=== PATIENT | female | born 1995 | race Caucasian/White ===

== ENCOUNTER 2020-12-28 14:52 | Observation (INO) | payer OTHER ==
[2020-12-28 15:58] VITALS: BP 111/73; PULSE 99
== END 2020-12-28 16:20 | disposition home or self-care (01) ==
LOC: WHC 14:52 → OB 15:25
PROVIDERS: ADMIT Obstetrics & Gynecology; ATTEND Obstetrics & Gynecology
DX: Z34.83 Encounter for supervision of other normal pregnancy, third trimester (principal); Z3A.35 35 weeks gestation of pregnancy
CPT/HCPCS: 59025; 59426; G0378; 81002

== ENCOUNTER 2021-01-04 13:32 | Observation (INO) | payer OTHER ==
[2021-01-04 14:41] VITALS: BP 102/57; PULSE 115
== END 2021-01-04 14:30 | disposition home or self-care (01) ==
LOC: OB 13:32
PROVIDERS: ADMIT Obstetrics & Gynecology; ATTEND Obstetrics & Gynecology
DX: O99.113 Other diseases of the blood and blood-forming organs and certain disorders involving the immune mechanism complicating pregnancy, third trimester (principal); D68.51 Activated protein C resistance
CPT/HCPCS: 59025; G0378

== ENCOUNTER 2021-01-11 11:19 | Observation (INO) | payer OTHER ==
[2021-01-11 12:05] VITALS: BP 121/87; PULSE 91
== END 2021-01-11 12:20 | disposition home or self-care (01) ==
LOC: OB 11:19
PROVIDERS: ADMIT Obstetrics & Gynecology; ATTEND Obstetrics & Gynecology
DX: O99.113 Other diseases of the blood and blood-forming organs and certain disorders involving the immune mechanism complicating pregnancy, third trimester (principal); D68.51 Activated protein C resistance; Z3A.38 38 weeks gestation of pregnancy; O36.5930 Maternal care for other known or suspected poor fetal growth, third trimester, not applicable or unspecified
CPT/HCPCS: 59025; G0378

== ENCOUNTER 2021-01-14 13:23 | Observation (INO) | payer OTHER ==
[2021-01-14 14:58] VITALS: BP 113/76; PULSE 73
== END 2021-01-14 14:45 | disposition home or self-care (01) ==
LOC: OB 13:23
PROVIDERS: ADMIT Obstetrics & Gynecology; ATTEND Obstetrics & Gynecology
DX: Z34.83 Encounter for supervision of other normal pregnancy, third trimester (principal); Z3A.38 38 weeks gestation of pregnancy
CPT/HCPCS: 59025; G0378

== ENCOUNTER 2021-01-18 09:53 | Observation (INO) | payer OTHER ==
[2021-01-18 10:54] VITALS: BP 142/86; PULSE 72
== END 2021-01-18 11:20 | disposition home or self-care (01) ==
LOC: MED SURG 09:53
PROVIDERS: ADMIT Obstetrics & Gynecology; ATTEND Obstetrics & Gynecology
DX: Z34.83 Encounter for supervision of other normal pregnancy, third trimester (principal); Z3A.38 38 weeks gestation of pregnancy
CPT/HCPCS: 59025; G0378

== ENCOUNTER 2021-01-20 06:12 | Inpatient (IN) | payer OTHER ==
[~2021-01-20 06:12] MED LIST: BRETHINE 1 MG/ML SQ PRN; PITOCIN 30 UNITS/ LR 500 ML 30 UNITS/500 ML IV.SOLN. IV SCH; XYLOCAINE 1% HCL 20 ML MDV IJ PRN; Zofran 4 MG/2 ML VIAL IV PRN
[2021-01-20 06:45] LABS: BASOPHIL % 0.2 % (0.0-0.4); Basophil (Absolute #) 0.02 (0-0.4); Eosinophil % 0.7 % (0.00-5.0); Eosinophil (Absolute #) 0.06 (0-0.5); Hematocrit 37.1 % (35-47); Lymphocyte (Absolute #) 1.61 (1.0-4.6); Lymphocytes % 17.8 % (24.0-44.0); Mean Cell Volume 92.8 fl (78-100); Mean Corpuscular Hgb Concent. 32.3 g/dl (32-36); Mean Platelet Volume 10.4 fl (7.5-11.0); Monocyte (Absolute #) 0.78 (0.0-1.3); Monocytes % 8.6 % (0.0-12.0); Neutrophil % 72.7 % (36.0-66.0); Platelet Count 277 K/mm3 (150-450); Red Cell Distribution Width 12.5 % (11.5-14.0); White Blood Count 9.1 K/mm3 (4.0-10.5)
[2021-01-20 06:50] LABS: Appearance SLIGHTLY CLOUDY (CLEAR); Bacteria RARE /HPF (NEGATIVE); Bilirubin NEGATIVE (NEGATIVE); Blood NEGATIVE Ery/ul (0-5); Epithelial Cells RARE /HPF (FEW); Glucose 50 mg/dL (NEGATIVE); Ketones NEGATIVE (NEGATIVE); Leukocyte Esterase NEGATIVE (NEGATIVE); Mucus SLIGHT /HPF (NEGATIVE); Nitrite NEGATIVE (NEGATIVE); Protein,Urine Dip NEGATIVE (Negative); Specific Gravity 1.017 (1.005-1.025); Urobilinogen NEGATIVE mg/dL (0-1); WBC 0-2 /HPF (0-5)
[2021-01-20 07:26] LABS: Amphetamine,Urine NEGATIVE (NEGATIVE); Barbiturate,Urine NEGATIVE (NEGATIVE); Benzodiazepine,Urine NEGATIVE (NEGATIVE); Cocaine,Urine NEGATIVE (NEGATIVE); Methadone,Urine NEGATIVE (NEGATIVE); Opiate,Urine NEGATIVE (NEGATIVE); PCP,Urine NEGATIVE (NEGATIVE); THC,Urine NEGATIVE (NEGATIVE)
[2021-01-20] MEDS ORDERED: PITOCIN 30 UNITS/ LR 500 ML 30 UNITS/500 ML IV.SOLN. IV SCH (08:00)
[2021-01-20 08:33] LABS: INR 0.97 (0.8-3.0)
[2021-01-20 10:33] LABS: RH TYPING POSITIVE
[2021-01-20 10:34] LABS: Antibody Screen NEGATIVE (NEGATIVE)
[2021-01-20 10:41] LABS: ABO TYPING B
[2021-01-20] MEDS ORDERED: Lactated Ringers 1,000 ML IV ONE (15:25)
[2021-01-20] MEDS ORDERED: OB EPIDURAL NAROPIN/SUFENTANIL IN NACL EPIDURAL PRN (15:25)
[2021-01-20] MEDS ORDERED: Ephedrine Sulfate 50 MG/ML IV PRN (15:25)
[2021-01-20] MEDS: Lactated Ringers 1,000 ML IV SCH ×3 (15:28→20:27)
[2021-01-20] MEDS ORDERED: CORTISONE 1% CREAM TP PRN (22:33)
[2021-01-20] MEDS ORDERED: Mylicon 80MG PO PRN (22:33)
[2021-01-20] MEDS ORDERED: LANSINOH 40 GM TOP PRN (22:33)
[2021-01-20] MEDS ORDERED: Anucort-HC SUPPOSITORY PR PRN (22:33)
[2021-01-20] MEDS ORDERED: Dulcolax 10 MG SUPP PR PRN (22:33)
[2021-01-20] MEDS: MOTRIN 400 MG PO PRN (22:58)
[2021-01-20] MEDS: TUCKS TP PRN (23:00)
[2021-01-20] MEDS: Dermoplast Spray TP PRN (23:00)
[2021-01-20] MEDS: KEFZOL 1 GM/50 ML PREMIX** 1 GM/50 ML IVPB IV SCH (23:02)
[2021-01-21 05:39] LABS: Absolute Neutrophil Ct (ANC) 10.08 (1.4-6.9); BASOPHIL % 0.2 % (0.0-0.4); Basophil (Absolute #) 0.03 (0-0.4); Eosinophil % 0.4 % (0.00-5.0); Eosinophil (Absolute #) 0.05 (0-0.5); Hematocrit 30.1 % (35-47); Hemoglobin 9.7 gm/dl (12.0-16.0); Lymphocyte (Absolute #) 1.68 (1.0-4.6); Lymphocytes % 12.5 % (24.0-44.0); Mean Cell Volume 93.8 fl (78-100); Mean Corpuscular Hemoglobin 30.2 pg (26-32); Mean Corpuscular Hgb Concent. 32.2 g/dl (32-36); Mean Platelet Volume 10.3 fl (7.5-11.0); Monocytes % 11.9 % (0.0-12.0); Platelet Count 204 K/mm3 (150-450); Red Blood Count 3.21 M/mm3 (4.1-5.4); Red Cell Distribution Width 12.4 % (11.5-14.0); White Blood Count 13.4 K/mm3 (4.0-10.5)
[2021-01-21] MEDS: MOTRIN 400 MG PO PRN ×3 (05:53→19:53)
[2021-01-21] MEDS: KEFZOL 1 GM/50 ML PREMIX** 1 GM/50 ML IVPB IV SCH ×2 (05:54→19:35)
[2021-01-21] MEDS: TYLENOL EXTRA STRENGTH 500 MG PO PRN ×3 (09:27→21:20)
[2021-01-21] MEDS: Colace 100 MG PO SCH ×2 (09:27→21:13)
[2021-01-21] MEDS: FERREX 150 PO SCH (09:27)
[2021-01-21 12:37] LABS: Slide Review 1 YES
[2021-01-21] MEDS: ENOXAPARIN SODIUM SQ SCH (15:30)
[2021-01-21 15:51] VITALS: O2SAT 98
[2021-01-22] MEDS: TYLENOL EXTRA STRENGTH 500 MG PO PRN ×2 (02:02→08:00)
[2021-01-22] MEDS: MOTRIN 400 MG PO PRN ×2 (02:03→07:59)
--- NOTE | 2021-01-22 09:46 | PCM.NOTE ---
Date and Time: 01/22/2145 Subjective Assessment: ppd 2 pt resting in bed and doing well vss afebrile abd; soft uterus; firm lochia; mild a/p sp ppd 2 dc home today fu office 3 wks OBJECTIVE DATA Vital Signs: Vital Signs - 24 hr Temp Pulse Resp BP Pulse Ox 01/22/21 08:00 98.7 F 71 20 121/79 01/22/21 02:00 98.3 F 90 17 97/63 98 01/21/21 20:00 98 F 85 17 103/56 98 01/21/21 15:15 98.0 F 73 18 108/55 98 Pain Assessment - Last Documented Pain Intensity [Anterior/ 3 Posterior] Pain Intensity 3 Pain Scale Used 0-10 Pain Scale,FLACC Intake and Output: Intake & Output 01/19/21 01/20/21 01/21/21 01/22/21 11:59 11:59 11:59 11:59 Intake Total 4018 2440 Output Total 1100 Balance 2918 2440 Weight 79.379 kg Lab Results: Lab Results-Last 24 Hours 01/20/21 01/21/21 Range/Units 06:30 05:06 Hep Bs Antigen Negative (Negative) Slides for Path Review YES
--- NOTE | 2021-01-22 09:49 | PCM.DS ---
Discharge Summary Date of Admission: 01/20/21 17:45 Admitting Physician: OLI GIBSON DO Primary Care Provider: ABIDA LARSEN Allergies Allergies No Known Drug Allergies Allergy (Unverified 12/28/20 16:07) Hospital Summary - Hospital Course Hospital Course: pt admitted on january 20 for induction secondary to sga and delivered live baby boy via wthout complication. during pospartum period pt did well had received her lovenox 40mg sq secondary to factor 5 leiden. pt at this time stable for discharge. pt during delivery had 2nd degree laceration repaired with 2-0 chromic suture. pt at this time stable for dc and advised to fu in office in 3 wks for care. all questions answered to her satisfaction. - Vitals & Intake/Output Vital Signs: Vital Signs Temperature 98.7 F 01/22/21 08:00 Pulse Rate 71 01/22/21 08:00 Respiratory Rate 20 01/22/21 08:00 Blood Pressure 121/79 01/22/21 08:00 O2 Sat by Pulse Oximetry 98 01/22/21 02:00 Intake & Output: Intake & Output 01/19/21 01/20/21 01/21/21 01/22/21 11:59 11:59 11:59 11:59 Intake Total 4018 2440 Output Total 1100 Balance 2918 2440 Weight 79.379 kg - Lab Result Diagrams: 01/21/21 05:06 Lab Results-Last 24 Hrs: Lab Results-Last 24 Hours 01/20/21 01/21/21 Range/Units 06:30 05:06 Hep Bs Antigen Negative (Negative) Slides for Path Review YES Final Diagnosis/Problem List - Final Discharge Diagnosis/Problem (1) Vaginal delivery Current Visit: Yes Status: Acute Code(s): O80 - ENCOUNTER FOR FULL-TERM UNCOMPLICATED DELIVERY - Discharge Disposition: Home, Self-Care Condition: Stable Prescriptions: No Action Fluoxetine HCl 20 mg [Prozac 20 MG] 20 mg PO DAILY Aspirin 81 mg PO DAILY Vits W-Ca,Fe,FA(<1Mg) [] 1 tab PO DAILY Heparin Sodium,Porcine/Pf [Heparin 10 Unit/10 ml (1/ml)] 10,000 units SQ BID Ondansetron ODT 4 MG [Zofran Odt 4 mg] 4 mg PO Q6H PRN PRN PRN Reason: Nausea Instructions: Depression, Vaginal Delivery, Breast Care for the Nonbreastfeeding Woman, Breast Care for the Woman, , Labor Induction, Misoprostol, How to Do a Sitz Bath, What to Watch for After You Have a Baby Follow up with: ABIDA LARSEN [Primary Care Provider] -
--- NOTE | 2021-01-22 09:50 | PCM.DS ---
Discharge Summary Date of Admission: 01/20/21 17:45 Admitting Physician: OLI GIBSON DO Primary Care Provider: ABIDA LARSEN Allergies Allergies No Known Drug Allergies Allergy (Unverified 12/28/20 16:07) Hospital Summary - Vitals & Intake/Output Vital Signs: Vital Signs Temperature 98.7 F 01/22/21 08:00 Pulse Rate 71 01/22/21 08:00 Respiratory Rate 20 01/22/21 08:00 Blood Pressure 121/79 01/22/21 08:00 O2 Sat by Pulse Oximetry 98 01/22/21 02:00 Intake & Output: Intake & Output 01/19/21 01/20/21 01/21/21 01/22/21 11:59 11:59 11:59 11:59 Intake Total 4018 2440 Output Total 1100 Balance 2918 2440 Weight 79.379 kg - Lab Result Diagrams: 01/21/21 05:06 Lab Results-Last 24 Hrs: Lab Results-Last 24 Hours 01/20/21 01/21/21 Range/Units 06:30 05:06 Hep Bs Antigen Negative (Negative) Slides for Path Review YES Final Diagnosis/Problem List - Final Discharge Diagnosis/Problem (1) Vaginal delivery Current Visit: Yes Status: Acute Code(s): O80 - ENCOUNTER FOR FULL-TERM UNCOMPLICATED DELIVERY - Discharge Discharge Date: 01/22/21 Disposition: Home, Self-Care Condition: Stable Prescriptions: No Action Fluoxetine HCl 20 mg [Prozac 20 MG] 20 mg PO DAILY Aspirin 81 mg PO DAILY Vits W-Ca,Fe,FA(<1Mg) [] 1 tab PO DAILY Heparin Sodium,Porcine/Pf [Heparin 10 Unit/10 ml (1/ml)] 10,000 units SQ BID Ondansetron ODT 4 MG [Zofran Odt 4 mg] 4 mg PO Q6H PRN PRN PRN Reason: Nausea Instructions: Depression, Vaginal Delivery, Breast Care for the Nonbreastfeeding Woman, Breast Care for the Woman, , Labor Induction, Misoprostol, How to Do a Sitz Bath, What to Watch for After You Have a Baby Follow up with: ABIDA LARSEN [Primary Care Provider] - OLI GIBSON DO [ACTIVE STAFF] - Call for Appointment (should fu in 3 wks for care )
[2021-01-22] MEDS: Colace 100 MG PO SCH (10:22)
[2021-01-22] MEDS: FERREX 150 PO SCH (10:22)
[2021-01-22] MEDS: ENOXAPARIN SODIUM SQ SCH (10:22)
[2021-01-22] MEDS: Dermoplast Spray TP PRN (15:50)
[2021-01-22] MEDS: TUCKS TP PRN (15:50)
[2021-01-22 16:51] VITALS: BP 111/74; PULSE 105
== END 2021-01-22 17:00 | disposition home or self-care (01) | DRG 806 ==
LOC: OB 06:12 → EEVIPCON 06:12 → OBSVTOIN 17:45 → OB 17:45
PROVIDERS: ADMIT Obstetrics & Gynecology; ATTEND Obstetrics & Gynecology
PROC: 10E0XZZ Delivery of Products of Conception, External Approach (ICD-10-PCS; principal; 2021-01-20)
PROC: 0KQM0ZZ Repair Perineum Muscle, Open Approach (ICD-10-PCS; 2021-01-20)
DX: O70.1 Second degree perineal laceration during delivery (principal); O99.12 Other diseases of the blood and blood-forming organs and certain disorders involving the immune mechanism complicating childbirth; Z37.0 Single live birth; D68.51 Activated protein C resistance; Z3A.39 39 weeks gestation of pregnancy
CPT/HCPCS: 36415; 80307; 81001; 85025; 85610; 85730; 86850; 86900; 86901; 87340; J0690; J1650; J2590; A9270-GY